=== PATIENT | male | born 1945 | race Caucasian/White ===

== ENCOUNTER → 2023-09-11 | Outpatient (CLI) | payer MEDICARE, BC ==
[~2023-09-11] MED LIST: CALCIUM & MAGNE1 CAP PO; CALCIUM600 M2 PO; FIBER CHOICE1 CTB PO; FISH OIL CONC1000 MG PO; GLUCOSAMINE & C1 TA1 PO; LISINOPRIL/HCTZ1 TA1 PO; MULTIPLE VITAMI1 TAB PO; PRILOSEC 20MG20 MG PO; SIMVASTATIN10 MG PO; VITAMIN C BUFF500 MG PO; VITAMIN D1000 IU PO; ZESTRIL20 MG PO
== END ==
LOC: COL.RAD 15:22
DX: G31.9 Degenerative disease of nervous system, unspecified (principal); I67.82 Cerebral ischemia; R26.9 Unspecified abnormalities of gait and mobility